=== PATIENT | female | born 2000 | race Caucasian/White ===

== ENCOUNTER 2019-01-07 14:17 | Emergency (ER) | payer BC ==
[~2019-01-07] VITALS: Ht 167.6 cm; Wt 58.5 kg
--- NOTE | 2019-01-07 14:17 | NUR ---
[facility]. PT HAD A WITNESSED SZ PER STAFF MEMBER, PT ARRIVES A/O X3 AND C/O GENERALIZED WEAKNESS.
[2019-01-07] MEDS ORDERED: IV NORMAL SALINE 1000 ML BAG IV ONE (14:30)
[2019-01-07] MEDS ORDERED: DOCU100C36 PO (14:31)
[2019-01-07] MEDS ORDERED: FOLI1TAB16 PO (14:31)
[2019-01-07] MEDS ORDERED: ESCI10TA PO (14:31)
[2019-01-07] MEDS ORDERED: IBUP-2269 PO (14:31)
[2019-01-07] MEDS ORDERED: THIA100T13 PO (14:31)
[2019-01-07] MEDS ORDERED: METH-406 PO (14:31)
[2019-01-07] MEDS ORDERED: PRAM0.5T3 PO (14:31)
[2019-01-07] MEDS ORDERED: QUET50TA PO (14:31)
[2019-01-07] MEDS ORDERED: CALC500T13 PO (14:31)
[2019-01-07] MEDS ORDERED: MULT-1023 PO (14:31)
[2019-01-07] MEDS ORDERED: LOPE2CAP40 PO (14:31)
[2019-01-07] MEDS ORDERED: GABA-534 PO (14:32)
[2019-01-07] MEDS ORDERED: ACET-73 PO (14:32)
[2019-01-07] MEDS ORDERED: ONDA4TAB5 PO (14:32)
[2019-01-07 14:41] LABS: BASOPHILS % (AUTO) 0.2 % (0.0-2.0); EOSINOPHILS # (AUTO) 0.2 K/uL (0.0-0.7); EOSINOPHILS % (AUTO) 2.3 % (0.0-7.0); HEMATOCRIT 40.9 % (31.2-41.9); HEMOGLOBIN 13.4 g/dL (10.9-14.3); LYMPHOCYTES # (AUTO) 1.7 K/uL (20.0-40.0); LYMPHOCYTES % (AUTO) 19.3 % (20.5-74.5); MEAN CORPUSCULAR HEMOGLOBIN 27.9 uug (24.7-32.8); MEAN CORPUSCULAR HGB CONC 33 g/dL (32.3-35.6); MONOCYTES # (AUTO) 0.5 K/uL (2.0-10.0); MONOCYTES % (AUTO) 5.5 % (0-11); NEUTROPHILS # (AUTO) 6.3 K/uL (1.8-8.9); NEUTROPHILS % (AUTO) 72.7 % (31.5-64.5); PLATELET COUNT (AUTO) 276 K/uL (179-408); RED BLOOD CELL COUNT(AUTO) 4.82 MIL/uL (3.63-4.92); WHITE BLOOD COUNT (AUTO) 8.6 K/uL (3.8-11.8)
[2019-01-07 14:48] LABS: CREATININE 0.7 mg/dL (0.6-1.3); POTASSIUM 3.7 mmol/L (3.5-5.1)
[2019-01-07 14:54] LABS: BILIRUBIN,DIRECT 0.1 mg/dL (0.0-0.2); BILIRUBIN,TOTAL 0.4 mg/dL (0.2-1.0)
--- NOTE | 2019-01-07 15:30 | NUR ---
Pt resting with NAD noted at this time.
--- NOTE | 2019-01-07 15:42 | NUR ---
Patient discharged to home in stable conditon with staff member from her facility. Written and verbal after care instructions given. Patient verbalizes understanding of instructions.
--- NOTE | 2019-01-07 15:42 | NUR ---
IV removed. Catheter intact and site benign. Pressure and 4x4 gauze applied to site. No bleeding noted.
[2019-01-07 15:43] VITALS: BP 111/74
== END 2019-01-07 15:44 | disposition home or self-care (01) ==
LOC: ER 14:17
DX: E86.0 Dehydration (principal); R56.9 Unspecified convulsions; F19.90 Other psychoactive substance use, unspecified, uncomplicated; Z79.1 Long term (current) use of non-steroidal anti-inflammatories (NSAID); Z79.899 Other long term (current) drug therapy
CPT/HCPCS: 36415; 85025; 86403; 87070; 93005; A4663; J7030